=== PATIENT | female | born 1960 | race Hispanic/Latino ===

== ENCOUNTER 2019-02-19 12:24 | Outpatient (CLI) | payer OTHER | END 2019-02-19 12:25 | disposition home or self-care (01) | LOC: ULT 12:24 | PROVIDERS: ATTEND Family Medicine | DX: I25.10 Atherosclerotic heart disease of native coronary artery without angina pectoris (principal); I10 Essential (primary) hypertension; R06.9 Unspecified abnormalities of breathing; I08.3 Combined rheumatic disorders of mitral, aortic and tricuspid valves | CPT/HCPCS: 93306 ==

== ENCOUNTER 2019-03-19 12:21 | Outpatient (CLI) | payer OTHER ==
--- NOTE | 2019-03-19 12:49 | RAD ---
XR Chest Pa Lat @ [facility] HISTORY: Dyspnea COMPARISON: None. FINDINGS: Heart size within normal limits there are atherosclerotic changes of the aorta. The lungs a re clear of any infiltrative process. There are arthritic changes of the spine. IMPRESSION: No acute changes.
== END 2019-03-19 12:22 | disposition home or self-care (01) ==
LOC: RAD 12:21
PROVIDERS: ATTEND Internal Medicine Critical Care Medicine
DX: R06.00 Dyspnea, unspecified (principal)
CPT/HCPCS: 71046

== ENCOUNTER 2019-04-09 19:30 | Outpatient (CLI) | payer OTHER | END 2019-04-09 19:31 | disposition home or self-care (01) | LOC: SLEEPLAB 19:30 | PROVIDERS: ATTEND Family Medicine | DX: G47.33 Obstructive sleep apnea (adult) (pediatric) (principal); R51 Headache; R06.83 Snoring; E66.9 Obesity, unspecified; I11.0 Hypertensive heart disease with heart failure; I50.9 Heart failure, unspecified; I25.10 Atherosclerotic heart disease of native coronary artery without angina pectoris | CPT/HCPCS: 95810 ==

== ENCOUNTER 2019-04-25 12:06 | Outpatient (CLI) | payer OTHER ==
--- NOTE | 2019-04-25 12:56 | ULT ---
BILATERAL RENAL ULTRASOUND: HISTORY: Chronic renal disease. FINDINGS: The right kidney measures 10.4 cm in length and the left kidney measures 11 cm in length. No focal m ass or hydronephrosis is seen on either side. Cortical echogenicity and thickness is normal. There is small amount of fluid in the urinary bladder (the patient voided just prior to exam). IMPRESSION: Normal exam. POS: [facility]
== END 2019-04-25 12:07 | disposition home or self-care (01) ==
LOC: BICULT 12:06
PROVIDERS: ATTEND Internal Medicine Nephrology
DX: N18.3 Chronic kidney disease, stage 3 (moderate) (principal)
CPT/HCPCS: 76770

== ENCOUNTER 2019-10-22 12:06 | Outpatient (CLI) | payer OTHER ==
--- NOTE | 2019-10-22 13:27 | CT ---
CT abdomen and pelvis noncontrast HISTORY: Flank pain. Hematuria. FINDINGS: No comparison. Small right extrarenal pelvis noted. Each renal collecting system is otherwi se decompressed, as is each ureter and the urinary bladder. No stones evident. Calcifications at each renal hilum favored to be arterial in origin. Lack of contrast limits evaluation for other abnormalities. Prominent calcification throughout the ar terial structures. Gallbladder is surgically absent. Diverticula arise from the colon without adjacent inflammation. Degenerative changes lumbar spine. IMPRESSION: No CT evidence of urinary tract obstruction or calcification. Prominent atherosclerosis. Diverticulosis. No evidence of diverticulitis.
== END 2019-10-22 12:07 | disposition home or self-care (01) ==
LOC: BICCT 12:06
PROVIDERS: ATTEND Urology
DX: N18.9 Chronic kidney disease, unspecified (principal); R31.9 Hematuria, unspecified; K57.30 Diverticulosis of large intestine without perforation or abscess without bleeding; I70.90 Unspecified atherosclerosis; Z72.0 Tobacco use
CPT/HCPCS: 74176

== ENCOUNTER 2019-12-30 07:58 | Outpatient (CLI) | payer OTHER ==
--- NOTE | 2019-12-30 09:26 | ULT ---
Exam: Bilateral renal ultrasound HISTORY: Chronic kidney disease. COMPARISON: None Technique: Grayscale, color flow, Doppler imaging and spectral waveform analysis performed the kidney s FINDINGS: Right kidney: Normal cortical echotexture. No hydronephrosis. Right kidney measurements: 4.7 x 11.4 x 5.1 cm. Left kidney: Normal cortical echotexture. No hydronephrosis Left kidney measurements 10.9 x 5.8 x 5.7 cm. Urinary bladder: Normal mucosa. Renal Doppler: Right renal artery: 62.6 cm/s Left renal artery: 87.9 cm/s Aorta: 75.2 cm/s Right renal artery to aorta ratio: 0.83 Left renal artery to aorta ratio 1.17 Right arcuate artery resistive indices: Superior 0.5, mid 0.82, inferior 0.83 Left arcuate artery resistive indices: Superior 0.76, mid 0.87, inferior 0.81 IMPRESSION: 1. No hydronephrosis 2. Increased arcuate artery resistive indices bilaterally. Correlate for medical renal disease.
== END 2019-12-30 07:59 | disposition home or self-care (01) ==
LOC: BICULT 07:58
PROVIDERS: ATTEND Family Medicine
DX: N18.3 Chronic kidney disease, stage 3 (moderate) (principal); R93.421 Abnormal radiologic findings on diagnostic imaging of right kidney; R93.422 Abnormal radiologic findings on diagnostic imaging of left kidney
CPT/HCPCS: 76770; 93975

== ENCOUNTER 2020-01-25 17:26 | Emergency (ER) | payer OTHER ==
[~2020-01-25 17:26] MED LIST: Sodium Bicarb 50 MEQ/50 ML Abboject 8.4% SYRINGE ONE
== END 2020-01-25 17:36 | disposition expired ==
LOC: ERS 17:26
DX: I46.9 Cardiac arrest, cause unspecified (principal)
CPT/HCPCS: 87635; 92950; 94760; 96374; U0002